=== PATIENT | female | born 1990 | race Caucasian/White ===

== ENCOUNTER 2019-10-29 10:59 | Inpatient (IN) ==
[2019-10-29] MEDS ORDERED: ONDANSETRON INJ 2 MG/ML 2 ML VIAL IV STA (11:25)
[2019-10-29] MEDS: SODIUM CHLORIDE 0.9% 1000ML 1,000 ML IV SCH ×2 (11:34→13:00)
--- NOTE | 2019-10-29 11:34 | Emergency Department Note ---
History of Present Illness General Chief complaint: Vomiting Stated complaint: VOMITING Time Seen by Provider: 10/29/19 11:08 History of Present Illness Patient is a 29-year-old female with past medical history significant for anxiety and depression who presents the emergency department for evaluation of nausea and vomiting x24 hours. She states her symptoms started yesterday morning. She reports multiple episodes of vomiting and constant nausea. She denies diarrhea. No hematemesis. No fever or chills. No urinary symptoms. She tried using Zofran, but vomiting persisted. She has tried sipping on water and Gatorade but she brings it back up almost immediately. She estimates that she has vomited roughly 10 times in the last 24 hours and 3 times since she woke up this morning. Last emesis was just prior to arrival here in the emergency department. Patient relates that she has been following with her doctor at [facility] for the last several months secondary to unexplained 40 pound weight loss and n ight sweats. She has been worked up with multiple tests including laboratory studies and a CT scan. She reports that she was supposed to have an appointment with GI this afternoon, but cancelled it as she was coming to the ED. She states that she has had episodes where she will vomit once or twice per day in the last several months, but it has not been constant like the last 24 hours have been. She lives at home with her , they have been eating and drinking the same foods and he is not ill. She has a Mirena IUD in place she does not menstruate and states that it is highly unlikely that she is . She reports mild diffuse mid abdominal discomfort, that she rates a 3/10, she states that it feels "muscular." Home Medications Home Medications Medication Instructions Recorded Confirmed Type levonorgestrel [Mirena] 20 mcg INTRAUTERINE CONTINOUS 02/07/19 10/29/19 History sertraline 150 mg PO DAILY 02/07/19 10/29/19 History Allergies Allergy/AdvReac Type Severity Reaction Status Date / Time No Known Allergies Allergy Verified 10/29/19 11:47 Past Med/Surg History Medical History (Updated 10/29/19 @ 12:12 by Faby Dominguez) Anxiety (Chronic) Depression (Chronic) Peritonsillar abscess Surgical History No significant past surgical history Family History (Updated 10/29/19 @ 10:22 by Miki Serra) Denies family history of Crohn's disease Colorectal cancer Ulcerative colitis Social History Preferred Language: Hungarian Visual Impairment: No Limitations Hearing Ability: Normal 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 marital status: Current Living Situation: Spouse current occupational status: student 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 Feels Safe at Home: Yes Smoking Status: Never smoker Hx Alcohol Use: No Hx Substance Use: No Childhood Exposure to Second-Hand Smoke: No caffeine: No during the past year weight has: decreased > 10 lbs Review of Systems A total of 10 systems reviewed and were otherwise negative Physical Exam Vital Signs Vital Signs - 24 hr 10/29/19 11:01 10/29/19 11:11 10/29/19 11:14 Temperature 36.3 C L Temperature Source Oral Pulse Rate - Lying Pulse Rate - Sitting Pulse Rate - Standing Pulse Rate 114 H 95 H 92 H Pulse Rate from SpO2 Sensor 99 H 92 H Respiratory Rate 18 18 18 Blood Pressure - Lying Blood Pressure - Sitting Blood Pressure- Standing Blood Pressure 75/47 L 83/64 L Blood Pressure Mean 56 76 Blood Pressure Position Sitting Pulse Oximetry 99 98 100 Oxygen Delivery Method Room Air Room Air Room Air Sepsis Recent Fever Within 48 Hours No Sepsis New/Unexplained Change in Mental Status No Sepsis Action Taken by Nursing No Action Required 10/29/19 11:16 10/29/19 11:20 10/29/19 11:28 Temperature Temperature Source Pulse Rate - Lying Pulse Rate - Sitting Pulse Rate - Standing Pulse Rate 97 H 98 H 84 Pulse Rate from SpO2 Sensor 98 H 97 H 92 H Respiratory Rate 16 17 18 Blood Pressure - Lying Blood Pressure - Sitting Blood Pressure- Standing Blood Pressure 107/59 L 87/57 L Blood Pressure Mean 64 69 Blood Pressure Position Pulse Oximetry 99 100 99 Oxygen Delivery Method Room Air Room Air Room Air Sepsis Recent Fever Within 48 Hours Sepsis New/Unexplained Change in Mental Status Sepsis Action Taken by Nursing 10/29/19 11:30 10/29/19 11:31 10/29/19 11:36 Temperature Temperature Source Pulse Rate - Lying 85 Pulse Rate - Sitting 94 H Pulse Rate - Standing 111 H Pulse Rate 84 81 Pulse Rate from SpO2 Sensor 83 83 Respiratory Rate 14 17 Blood Pressure - Lying 89/50 L Blood Pressure - Sitting 85/63 L Blood Pressure- Standing 90/55 L Blood Pressure 84/61 L Blood Pressure Mean 66 Blood Pressure Position Pulse Oximetry 97 99 Oxygen Delivery Method Room Air Room Air Sepsis Recent Fever Within 48 Hours Sepsis New/Unexplained Change in Mental Status Sepsis Action Taken by Nursing 10/29/19 11:37 10/29/19 11:39 10/29/19 11:40 Temperature Temperature Source Pulse Rate - Lying Pulse Rate - Sitting Pulse Rate - Standing Pulse Rate 94 H 108 H 87 Pulse Rate from SpO2 Sensor 92 H 96 H 90 Respiratory Rate 16 18 16 Blood Pressure - Lying Blood Pressure - Sitting Blood Pressure- Standing Blood Pressure 85/63 L 90/55 L Blood Pressure Mean 68 71 Blood Pressure Position Pulse Oximetry 100 70 L 84 L Oxygen Delivery Method Room Air Room Air Room Air Sepsis Recent Fever Within 48 Hours Sepsis New/Unexplained Change in Mental Status Sepsis Action Taken by Nursing 10/29/19 11:45 10/29/19 11:50 10/29/19 12:00 Temperature Temperature Source Pulse Rate - Lying Pulse Rate - Sitting Pulse Rate - Standing Pulse Rate 84 84 94 H Pulse Rate from SpO2 Sensor 86 90 Respiratory Rate 15 19 20 Blood Pressure - Lying Blood Pressure - Sitting Blood Pressure- Standing Blood Pressure 81/54 L Blood Pressure Mean 56 Blood Pressure Position Pulse Oximetry 97 83 L Oxygen Delivery Method Room Air Sepsis Recent Fever Within 48 Hours Sepsis New/Unexplained Change in Mental Status Sepsis Action Taken by Nursing 10/29/19 12:01 10/29/19 12:10 10/29/19 12:15 Temperature Temperature Source Pulse Rate - Lying Pulse Rate - Sitting Pulse Rate - Standing Pulse Rate 88 91 H 85 Pulse Rate from SpO2 Sensor 89 89 87 Respiratory Rate 16 14 16 Blood Pressure - Lying Blood Pressure - Sitting Blood Pressure- Standing Blood Pressure 88/52 L 79/52 L Blood Pressure Mean 67 58 Blood Pressure Position Pulse Oximetry 100 99 99 Oxygen Delivery Method Room Air Room Air Room Air Sepsis Recent Fever Within 48 Hours Sepsis New/Unexplained Change in Mental Status Sepsis Action Taken by Nursing 10/29/19 12:16 10/29/19 12:20 10/29/19 12:30 Temperature Temperature Source Pulse Rate - Lying Pulse Rate - Sitting Pulse Rate - Standing Pulse Rate 88 86 88 Pulse Rate from SpO2 Sensor 89 86 88 Respiratory Rate 16 15 18 Blood Pressure - Lying Blood Pressure - Sitting Blood Pressure- Standing Blood Pressure 75/53 L 86/52 L Blood Pressure Mean 58 57 Blood Pressure Position Pulse Oximetry 97 100 91 Oxygen Delivery Method Room Air Room Air Room Air Sepsis Recent Fever Within 48 Hours Sepsis New/Unexplained Change in Mental Status Sepsis Action Taken by Nursing 10/29/19 12:31 10/29/19 12:40 10/29/19 12:45 Temperature Temperature Source Pulse Rate - Lying Pulse Rate - Sitting Pulse Rate - Standing Pulse Rate 87 93 H 88 Pulse Rate from SpO2 Sensor 85 94 H Respiratory Rate 18 17 15 Blood Pressure - Lying Blood Pressure - Sitting Blood Pressure- Standing Blood Pressure 87/50 L Blood Pressure Mean 63 Blood Pressure Position Pulse Oximetry 96 98 Oxygen Delivery Method Room Air Room Air Room Air Sepsis Recent Fever Within 48 Hours Sepsis New/Unexplained Change in Mental Status Sepsis Action Taken by Nursing 10/29/19 12:50 10/29/19 13:00 10/29/19 13:01 Temperature Temperature Source Pulse Rate - Lying Pulse Rate - Sitting Pulse Rate - Standing Pulse Rate 88 90 96 H Pulse Rate from SpO2 Sensor 89 92 H 92 H Respiratory Rate 14 19 15 Blood Pressure - Lying Blood Pressure - Sitting Blood Pressure- Standing Blood Pressure 86/43 L Blood Pressure Mean 52 Blood Pressure Position Pulse Oximetry 82 L 100 91 Oxygen Delivery Method Room Air Room Air Room Air Sepsis Recent Fever Within 48 Hours Sepsis New/Unexplained Change in Mental Status Sepsis Action Taken by Nursing 10/29/19 13:10 10/29/19 13:15 Temperature Temperature Source Pulse Rate - Lying Pulse Rate - Sitting Pulse Rate - Standing Pulse Rate 93 H 95 H Pulse Rate from SpO2 Sensor 91 H 93 H Respiratory Rate 14 19 Blood Pressure - Lying Blood Pressure - Sitting Blood Pressure- Standing Blood Pressure 88/54 L Blood Pressure Mean 58 Blood Pressure Position Pulse Oximetry 93 100 Oxygen Delivery Method Room Air Room Air Sepsis Recent Fever Within 48 Hours Sepsis New/Unexplained Change in Mental Status Sepsis Action Taken by Nursing CONSTITUTIONAL: Patient is a thin 29-year-old female who is awake and alert and in no acute distress. She is noted to be hypotensive and tachycardic in triage. Afebrile. EYES: Pupils equal, round, reactive to light and accommodation. EOMs intact without nystagmus. Sclera are anicteric. ENT: Tympanic membranes intact, with normal landmarks. External canals are clear. Oral and nasopharynx are clear. Mucous membranes are moist, no lesions, tongue and gums appear normal. CARDIOVASCULAR: Regular rate and rhythm, with normal S1 and S2, no murmur or gallop or rub is heard. No carotid bruits auscultated. No JVD. Peripheral p ulses easy to palpable. RESPIRATORY: Breath sounds equal and clear to auscultation without wheezes, rales, or rhonchi heard. Full and equal chest expansion without accessory muscle use or retractions. GI: Bowel sounds are present. Abdomen is soft, scaphoid, mildly tender in the mid upper abdomen in the epigastric region. No organomegaly. No pulsatile masses. No guarding or rebound. MUSCULOSKELETAL: Full range of motion of extremities x 4 with good strength. No cyanosis, edema, joint tenderness or swelling. No deformity. INTEGUMENTARY: No lesions or rashes noted, darkened pigmentation noted diffusely. Normal skin turgor. NEUROLOGICAL: Alert, oriented, and cooperative. Cranial nerves, sensation and strength grossly intact. Normal gait. LYMPH: No lymphadenopathy. Course Course The patient was seen and assessed as above. Her old records were reviewed. She has had a several month history of unintentional weight loss and night sweats with nausea and vomiting, but acutely in the last 24 hours has had constant nausea and multiple episodes of vomiting. She has outpatient studies in the computer which were reviewed including CT of her chest, abdomen and pelvis from the end of July 2019, and an echocardiogram from 08/08/2019. Laboratory studies performed here previously were also reviewed. IV lock was initiated and laboratory studies were collected. Orthostatic vital signs were positive. She was hydrated with a total of 2 L of normal saline solution and medicated with Zofran 4 mg IV for nausea. CBC with differential, CMP, magnesium, lipase and urinalysis were performed. Laboratory studies noted a normal white count of 8200. No left shift or bandemia. No anemia. Electrolytes note a low sodium of 123, potassium 4.3, chloride 90, dioxide 22, BUN 20 and creatinine 0.8. Magnesium also low at 1.4. Transaminases are not elevated. Lipase is within normal limits. Urine microscopy notes 2+ blood and leukocyte esterase, and 2+ bacteria. Urine culture is pending. Patient is not currently experiencing any UTI symptoms. Her test was negative. All laboratory studies were reviewed with attending physician and discussed with the patient. 2 gram IV magnesium was ordered over 2 hours. Given her hyponatremia and hypomagnesia, it was felt that she would benefit from admi ssion/observation for further care and management, hydration and electrolyte repletion. This was discussed with her and she was agreeable. Tachycardia improved with hydration. [facility] service for further care and management. Administered Medications Discontinued Medications Sodium Chloride (Nss 1000ml) 1,000 mls @ 999 mls/hr IV .Q1H1M EILEEN Stop: 10/29/19 13:25 Last Infusion: 10/29/19 12:59 Dose: 0 mls/hr Documented by: [id number] Admin: 10/29/19 11:34 Dose: 999 mls/hr Documented by: [id number] Magnesium Sulfate/Dextrose (Magnesium Sulfate / D5w) 1 gm in 100 mls @ 100 mls/hr IV Q1H STA Stop: 10/29/19 12:54 Last Infusion: 10/29/19 13:05 Dose: 0 mls/hr Documented by: [id number] Admin: 10/29/19 12:11 Dose: 100 mls/hr Documented by: [id number] Ondansetron HCl (Zofran) 4 mg IV NOW STA Stop: 10/29/19 11:26 Last Admin: 10/29/19 11:34 Dose: 4 mg Documented by: [id number] Medical Decision Making Differential Diagnosis Differential diagnoses included dehydration, electrolyte or metabolic abnormality, gastritis, GERD, peptic ulcer disease, viral illness, infectious versus inflammatory colitis/enteritis, foodborne illness, infection, hypoglycemia, among others. Medical Records Attestation: I reviewed the patient's medical records. Home Medications Current Medication List: was personally reviewed by me Laboratory Data Attestation: I reviewed the patient's lab results. Result diagrams: 10/29/19 11:17 10/29/19 11:17 Lab Results 10/29/19 10/29/19 10/29/19 Range/Units 11:17 11:17 11:40 WBC 8.12 (4.8-10.8) K/uL RBC 4.82 (4.2-5.4) M/uL Hgb 14.3 (12.0-16.0) g/dL Hct 38.9 (37-47) % MCV 80.7 (80-100) fL MCH 29.7 (25-34) pg MCHC 36.8 H (32-36) g/dL RDW Std Deviation 36.8 (36.4-46.3) fL RDW Coeff of Jerry 12.5 (11.5-14.5) % Plt Count 289 (130-400) K/uL MPV 10.6 H (7.4-10.4) fL Immature Gran % (Auto) 0.1 % Neut % (Auto) 43.7 % Lymph % (Auto) 39.0 % [place] % (Auto) 9.2 % Eos % (Auto) 7.4 % Baso % (Auto) 0.6 % Immature Gran # (Auto) 0.01 (0.00-0.02) K/uL Neut # (Auto) 3.54 (1.4-6.5) K/uL Lymph # (Auto) 3.17 (1.2-3.4) K/uL [place] # (Auto) 0.75 H (0.11-0.59) K/uL Eos # (Auto) 0.60 H (0-0.5) K/uL Baso # (Auto) 0.05 (0-0.2) K/uL Sodium 123 L (136-145) mmol/L Potassium 4.3 (3.5-5.1) mmol/L Chloride 90 L (98-107) mmol/L Carbon Dioxide 22 (21-32) mmol/L Anion Gap 11.0 (3-11) BUN 20 H (7-18) mg/dl Creatinine 0.81 (0.6-1.2) mg/dl Est Cr Clr Drug Dosing 77.3 ml/min Est GFR ( Amer) 113.0 Est GFR (Non-Af Amer) 97.5 BUN/Creatinine Ratio 24.8 H (10-20) Glucose 89 (70-99) mg/dl Calcium 10.4 H (8.5-10.1) mg/dl Magnesium 1.4 L (1.8-2.4) mg/dl Total Bilirubin 0.9 (0.2-1) mg/dl AST 36 (15-37) U/L ALT 37 (12-78) U/L Alkaline Phosphatase 83 (45-117) U/L Total Protein 7.5 (6.4-8.2) gm/dl Albumin 3.5 (3.4-5.0) gm/dl Globulin 4.0 (2.5-4.0) gm/dl Albumin/Globulin Ratio 0.9 (0.9-2) Lipase 268 (73-393) U/L Urine Color Yellow Urine Appearance Clear (Clear) Urine pH 5.0 (4.5-7.5) Ur Specific [place] >= 1.030 (1.000-1.030) Urine Protein Negative (Negative) Urine Glucose (UA) Negative (Negative) Urine Ketones Trace H (Negative) Urine Blood 2+ H (Negative) Urine Nitrite Negative (Negative) Urine Bilirubin Negative (Negative) Urine Urobilinogen Negative (Negative) Ur Leukocyte Esterase 2+ H (Negative) Urine RBC 5-10 H (0-4) /hpf Urine WBC 10-30 H (0-5) /hpf Ur Epithelial Cells 5-10 H (0-5) /lpf Urine Bacteria 2+ H (Negative) WBC Casts 1-5 H (0) /lpf POC Ur Test (NEG) 10/29/19 Range/Units 11:44 WBC (4.8-10.8) K/uL RBC (4.2-5.4) M/uL Hgb (12.0-16.0) g/dL Hct (37-47) % MCV (80-100) fL MCH (25-34) pg MCHC (32-36) g/dL RDW Std Deviation (36.4-46.3) fL RDW Coeff of Jerry (11.5-14.5) % Plt Count (130-400) K/uL MPV (7.4-10.4) fL Immature Gran % (Auto) % Neut % (Auto) % Lymph % (Auto) % [place] % (Auto) % Eos % (Auto) % Baso % (Auto) % Immature Gran # (Auto) (0.00-0.02) K/uL Neut # (Auto) (1.4-6.5) K/uL Lymph # (Auto) (1.2-3.4) K/uL [place] # (Auto) (0.11-0.59) K/uL Eos # (Auto) (0-0.5) K/uL Baso # (Auto) (0-0.2) K/uL Sodium (136-145) mmol/L Potassium (3.5-5.1) mmol/L Chloride (98-107) mmol/L Carbon Dioxide (21-32) mmol/L Anion Gap (3-11) BUN (7-18) mg/dl Creatinine (0.6-1.2) mg/dl Est Cr Clr Drug Dosing ml/min Est GFR ( Amer) Est GFR (Non-Af Amer) BUN/Creatinine Ratio (10-20) Glucose (70-99) mg/dl Calcium (8.5-10.1) mg/dl Magnesium (1.8-2.4) mg/dl Total Bilirubin (0.2-1) mg/dl AST (15-37) U/L ALT (12-78) U/L Alkaline Phosphatase (45-117) U/L Total Protein (6.4-8.2) gm/dl Albumin (3.4-5.0) gm/dl Globulin (2.5-4.0) gm/dl Albumin/Globulin Ratio (0.9-2) Lipase (73-393) U/L Urine Color Urine Appearance (Clear) Urine pH (4.5-7.5) Ur Specific [place] (1.000-1.030) Urine Protein (Negative) Urine Glucose (UA) (Negative) Urine Ketones (Negative) Urine Blood (Negative) Urine Nitrite (Negative) Urine Bilirubin (Negative) Urine Urobilinogen (Negative) Ur Leukocyte Esterase (Negative) Urine RBC (0-4) /hpf Urine WBC (0-5) /hpf Ur Epithelial Cells (0-5) /lpf Urine Bacteria (Negative) WBC Casts (0) /lpf POC Ur Test NEG (NEG) Blood Pressure Blood Pressure Findings: Low blood pressure Blood Pressure Disposition: further management by hospitalist MDM Narrative See ED Course. Impression & Plan Hyponatremia, Hypomagnesemia, Nausea and vomiting, Orthostatic hypotension Discharge Plan Visit Data Chief Complaint: Vomiting Stated Complaint: VOMITING ED Provider: Tunde [facility] ED Midlevel Provider: Faby Dominguez Discharge Problem: Hyponatremia, Hypomagnesemia, Nausea and vomiting, Orthostatic hypotension Forms Stand Alone Forms: [employer] Prescriptions Prescriptions: No Action Mirena 20 mcg/24 hours (5 yrs) 52 mg Intrauterine Device 20 mcg INTRAUTERINE CONTINOUS RF: 0 sertraline 100 mg Tablet 150 mg PO DAILY RF: 0 Referrals Referrals: [facility] [Primary Care Provider] - Discharge Problem: Nausea and vomiting Qualifiers: Vomiting type: unspecified Vomiting Intractability: non-intractable Qualified Code(s): R11.2 - Nausea with vomiting, unspecified
[2019-10-29 11:44] LABS: Basophils # (auto) 0.05 K/uL (0-0.2); Basophils % (auto) 0.6 %; Eosinophils % (auto) 7.4 %; Hematocrit (blood only) 38.9 % (37-47); Hemoglobin 14.3 g/dL (12.0-16.0); Immature Granulocytes # (auto) 0.01 K/uL (0.00-0.02); Immature Granulocytes % (auto) 0.1 %; Lymphocytes # (auto) 3.17 K/uL (1.2-3.4); Mean Corpuscular Hemoglobin 29.7 pg (25-34); Mean Corpuscular Hgb Conc 36.8 g/dL (32-36); Mean Corpuscular Volume 80.7 fL (80-100); Mean Platelet Volume 10.6 fL (7.4-10.4); Monocytes # (auto) 0.75 K/uL (0.11-0.59); Monocytes % (auto) 9.2 %; Neutrophils # (auto) 3.54 K/uL (1.4-6.5); Neutrophils % (auto) 43.7 %; Platelet Count 289 K/uL (130-400); RDW Coefficient of Variation 12.5 % (11.5-14.5); RDW Standard Deviation 36.8 fL (36.4-46.3); Red Blood Count 4.82 M/uL (4.2-5.4); White Blood Count 8.12 K/uL (4.8-10.8)
[2019-10-29 11:51] LABS: Albumin Level 3.5 gm/dl (3.4-5.0); BUN Creatinine Ratio 24.8 (10-20); Calcium 10.4 mg/dl (8.5-10.1); Creatinine Clr Calc Pharmacy 77.3 ml/min; Est GFR (Non-African American) 97.5; Magnesium 1.4 mg/dl (1.8-2.4); Potassium 4.3 mmol/L (3.5-5.1)
[2019-10-29 11:54] LABS: Albumin Globulin Ratio 0.9 (0.9-2); Bilirubin,Total 0.9 mg/dl (0.2-1); Total Protein 7.5 gm/dl (6.4-8.2)
[2019-10-29] MEDS ORDERED: MAGNESIUM SULFATE / D5W 1 GM/100 ML BAG IV STA (11:55)
[2019-10-29 12:03] LABS: Appearance Urine Clear (Clear); Blood Urine 2+ (Negative); Color Urine Yellow; Glucose Urine UA Negative (Negative); Ketones Urine Trace (Negative); Leukocyte Esterase Urine 2+ (Negative); Nitrite Urine Negative (Negative); Protein Urine Negative (Negative); Specific Gravity Urine >= 1.030 (1.000-1.030); Urobilinogen Urine Negative (Negative)
[2019-10-29 12:06] LABS: Bilirubin Urine Negative (Negative); Ictotest Urine Negative (Negative)
[2019-10-29 12:14] LABS: Bacteria Urine 2+ (Negative)
[2019-10-29] MEDS ORDERED: SODIUM CHLORIDE 0.9% 500 ML IV ONE (13:48)
--- NOTE | 2019-10-29 14:00 | History & Physical Report ---
Date of Service October 29, 2019 Assessment & Plan (1) Shock: Random cortisol level is <1. Shock is likely due to addisonian crisis. I cannot exclude sepsis from UTI but less likely given no fever, normal WBC count, etc -- but plan to treat UTI anyway. Of note - based on records it appears pt's baseline systolic BP is upper 90s. She verbally verified that this is her baseline as well. plan - * will given additional saline bolus now * then generous fluids with NS at 125cc/hr * start stress dose steroids; start with IV decadron but if cosyntropin stim test is not needed then switch to hydrocortisone 100mg TID (to discuss case with endocrinology) * check ACTH, free T4, prolactin to r/o secondary cause of adrenal insufficiency (pituitary adenoma, etc) * place on tele in PCU * watch vitals carefully and if BPs do not improve with above then low threshold to discuss care with junior financial analyst (2) Adrenal insufficiency: Random cortisol level is <1 consistent with adrenal insufficiency. I spoke with endocrinology - they advise a repeat level to ensure no lab error. However, given her salt cravings, lip hyperpigmentation, weight loss, hyponatremia, etc - everything points towards primary adrenal insufficiency (ahmet's). Check ACTH, prolactin, and TSH/free T4. Start stress-dose steroids as noted above in "shock." (3) Hyponatremia: Hypovolemic hyponatremia from severe dehydration. Check serum osm, urine osm, urine Na to be complete. Replete with NS. Recheck BMP later tonight and then again in am. (4) Hypomagnesemia: 2nd to emesis and decreased PO intake. repleted in ER. recheck mag level in AM. (5) Nausea and vomiting: Suspect 2nd to adrenal crisis and/or UTI. Cannot rule out other upper GI causes. Allow clears; zofran prn; IV fluids. If vomiting persists then consider CT of abd/pelvis. (6) Orthostatic hypotension: 2nd to massive dehydration and adrenal insufficiency. OOB to chair with assistance. Daily AM orthostatics. (7) Severe protein-calorie malnutrition: Differential - malignancy vs endocrine disorder (adrenal insufficiency, etc) vs autoimmune disease (has aphthous ulcers on exam, h/o lymphadenopathy on CT chest in July, etc) vs other. Treat adrenal gland disorder. Potentially may need additional work-up as outpatient. (8) Weight loss, unintentional: As above. Start boost. Start MVI. (9) Depression: Cont SSRI (10) Anxiety: Cont SSRI (11) UTI (urinary tract infection): u/a suggestive of UTI. send urine culture. Start rocephin 1 gm daily. Has WBC casts - this may suggest pyelonephritis - but has no flank pain/back pain or other suggestion of such. (12) Abnormal casts in urine: WBC casts see above (13) Ovarian cyst: as seen on CT abd/pelvis in July 2019. saw clay roaster at [facility]. had pelvic u/s. felt to be benign. needs f/u for IUD as outpatient. (14) Abnormal chest CT: Had multiple axillary, mediastinal and hilar lymph nodes on CT chest in July 2019. none were >1cm in size. if adrenal insufficiency is felt NOT to be the cause of her presentation today and her chronic weight loss then would recommend repeat chest CT jeanette. (15) Hypercalcemia: Mild. Start with intact PTH. This may simply be due to massive dehydration. Has not had high calcium in the past. Is not on any medication that would cause such. Repeat BMP in am. If high calcium level persists, and in light of weight loss, sweats, etc - would need malignancy w/u, r/o sarcoid, etc. (16) DVT prophylaxis: heparin 5000 BID In light of suspected shock 2nd to new-onset/newly-diagnosed adrenal insufficiency/adrenal crisis - as this poses a threat to her life and puts her at risk of organ injury - critical care time 70 minutes. History of Present Illness Chief Complaint: nausea, emesis, inability to eat, weakness, weight loss Primary Care Provider: [facility] 29yo female with h/o anxiety/depression and a prior hospital stay in [place], [place] for what sounds like complications from peritonsillar abscess presents with multiple complaints. Patient reports persistent vomiting of stomach contents (nonbilious, nonbloody) for about 24 hours (vomited at least 9x's), constant nausea, inability to eat/drink, and severe weakness with dizziness upon standing. She has felt chronically unwell since 06/2019 with daily drenching nightsweats, chills, and unintentional weight loss of about 40 pounds. She underwent work-up for this in July 2019 with rios-CT showing mildly enlarged axillary and mediastinal lymph nodes along with an ovarian lesion later felt to be a benign ovarian cyst (had pelvic u/s and saw clay roaster at [facility] this winter for such). She has not had follow-up for the weight loss since. In addition to the above she has had cough for 1-2 weeks - mainly dry, left ear discomfort, sinus congestion with runny nose (attributed to seasonal allergies) but no headaches, fevers, abdominal pain, myalgias, or arthralgias. No diarrhea but has had constipation. No dysuria. Has IUD in place and has NO menstrual blood flow. Was due to have the IUD removed in August but delayed because of COVID-19. Has NOT been out of her home for 2+ weeks. Lives with her who buys the groceries, etc. He has been well without any infectious symptoms. Allergies Allergy/AdvReac Type Severity Reaction Status Date / Time No Known Allergies Allergy Verified 10/29/19 11:47 Home Medications Home Medications Medication Instructions Recorded Confirmed Type levonorgestrel [Mirena] 20 mcg INTRAUTERINE CONTINOUS 02/07/19 10/29/19 History sertraline 150 mg PO DAILY 02/07/19 10/29/19 History Past Med/Surg History Medical History (Updated 10/29/19 @ 15:32 by Onel Wick) Anxiety (Chronic) Depression (Chronic) Peritonsillar abscess Surgical History No significant past surgical history Family History Mother Pituitary abnormality Father Hypertension Denies family history of Autoimmune disease Crohn's disease Lymphoma Colorectal cancer Ulcerative colitis Social History (Updated 10/29/19 @ 15:10 by Onel Wick) Preferred Language: Hebrew Communication Ability: Effective Visual Impairment: No Limitations Hearing Ability: Normal 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 Beliefs That Will Affect Care: None marital status: Current Living Situation: Spouse current occupational status: student 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 Feels Safe at Home: Yes Safety Concerns: Feels Safe At This Time Smoking Status: Never smoker Hx Alcohol Use: No Hx Substance Use: No Childhood Exposure to Second-Hand Smoke: No caffeine: No during the past year weight has: decreased > 10 lbs Review of Systems Constitutional: + chills, + sweats, + fatigue, + weakness, + anorexia and + weight loss (40 pounds since 06/2019 ); no fever and no body aches Eyes: no worsening vision Ear, Nose, Mouth, Throat: + nasal congestion, + nasal discharge and + mouth lesions (chronic - since childhood); no sore throat Respiratory: + cough; no chest congestion and no dyspnea Cardiovascular: no chest pain Gastrointestinal: + nausea, + vomiting and + constipation; no abdominal pain, no diarrhea/loose stools, no blood in stools and no melena Genitourinary: no dysuria Musculoskeletal: no joint pain and no myalgia Integumentary: no rash and no change in skin color Neurologic: no localized weakness and no paresthesia Psychiatric: + depression and + anxiety Endocrine: + fatigue and + cold intolerance Hematologic / Lymphatic: no easy bleeding Physical Exam Constitutional: + ill appearing, + thin and + frail appearing; no acute distress and no altered mental status Eyes: + anicteric sclerae and PERRL ENMT: Ears: + TM abnormality (left TM retracted ) Mouth: + lip abnormality (bronzing/hyperpigmented ), + oral mucosal abnormality (aphthous ulcer left posterior throat ) and + dry oral mucous membranes Neck: trachea midline, no thyromegaly Respiratory: normal respiratory effort, lungs clear to auscultation Cardiovascular: Rate/Rhythm: regular rate and regular rhythm Heart Sounds: normal S1 and normal S2; no murmur Vessels: posterior tibial pulses present and dorsalis pedis pulses present; no JVD Extremities: no edema Gastrointestinal (Abdomen): normal bowel sounds, soft, nontender, no hepatosplenomegaly Musculoskeletal: no cyanosis or clubbing, extremities motor strength 5/5 Skin: no rashes, warm and dry Neurologic: moves all extremities; no focal motor deficits DTRs mildly brisk Psychiatric: A+Ox3, euthymic affect Genitourinary: deferred Lymphatic: + cervical lymphadenopathy (1cm node- left neck); no axillary lymphadenopathy Results & Data Results & Data ([facility]) Vital Signs (Past 12 Hours) Vital Signs Temp Pulse Resp BP Pulse Ox 10/29/19 13:15 95 H 19 88/54 L 100 10/29/19 13:10 93 H 14 93 10/29/19 13:01 96 H 15 86/43 L 91 10/29/19 13:00 90 19 100 10/29/19 12:50 88 14 82 L 10/29/19 12:45 88 15 87/50 L 10/29/19 12:40 93 H 17 98 10/29/19 12:31 87 18 96 10/29/19 12:30 88 18 86/52 L 91 10/29/19 12:20 86 15 100 10/29/19 12:16 88 16 75/53 L 97 10/29/19 12:15 85 16 79/52 L 99 10/29/19 12:10 91 H 14 99 10/29/19 12:01 88 16 88/52 L 100 10/29/19 12:00 94 H 20 83 L 10/29/19 11:50 84 19 10/29/19 11:45 84 15 81/54 L 97 10/29/19 11:40 87 16 84 L 10/29/19 11:39 108 H 18 90/55 L 70 L 10/29/19 11:37 94 H 16 85/63 L 100 10/29/19 11:31 81 17 99 10/29/19 11:30 84 14 84/61 L 97 10/29/19 11:28 84 18 87/57 L 99 10/29/19 11:20 98 H 17 100 10/29/19 11:16 97 H 16 107/59 L 99 10/29/19 11:14 92 H 18 100 10/29/19 11:11 95 H 18 83/64 L 98 10/29/19 11:01 36.3 C L 114 H 18 75/47 L 99 Laboratory Results Laboratory Results - last 24 hr 10/29/19 10/29/19 10/29/19 11:17 11:17 11:17 WBC 8.12 RBC 4.82 Hgb 14.3 Hct 38.9 MCV 80.7 MCH 29.7 MCHC 36.8 H RDW Std Deviation 36.8 RDW Coeff of Jerry 12.5 Plt Count 289 MPV 10.6 H Immature Gran % (Auto) 0.1 Neut % (Auto) 43.7 Lymph % (Auto) 39.0 Isabella % (Auto) 9.2 Eos % (Auto) 7.4 Baso % (Auto) 0.6 Immature Gran # (Auto) 0.01 Neut # (Auto) 3.54 Lymph # (Auto) 3.17 Isabella # (Auto) 0.75 H Eos # (Auto) 0.60 H Baso # (Auto) 0.05 ESR 49 H Sodium 123 L Potassium 4.3 Chloride 90 L Carbon Dioxide 22 Anion Gap 11.0 BUN 20 H Creatinine 0.81 Est Cr Clr Drug Dosing 77.3 Est GFR ( Amer) 113.0 Est GFR (Non-Af Amer) 97.5 BUN/Creatinine Ratio 24.8 H Glucose 89 Osmolality Calcium 10.4 H Magnesium 1.4 L Total Bilirubin 0.9 AST 36 ALT 37 Alkaline Phosphatase 83 C-Reactive Protein Total Protein 7.5 Albumin 3.5 Globulin 4.0 Albumin/Globulin Ratio 0.9 Lipase 268 TSH PTH Intact Random Cortisol Urine Color Urine Appearance Urine pH Ur Specific Helix Urine Protein Urine Glucose (UA) Urine Ketones Urine Blood Urine Nitrite Urine Bilirubin Urine Urobilinogen Ur Leukocyte Esterase Urine RBC Urine WBC Ur Epithelial Cells Urine Bacteria WBC Casts POC Ur Test NEGRO Screen 10/29/19 10/29/19 10/29/19 11:17 11:17 11:17 WBC RBC Hgb Hct MCV MCH MCHC RDW Std Deviation RDW Coeff of Jerry Plt Count MPV Immature Gran % (Auto) Neut % (Auto) Lymph % (Auto) Isabella % (Auto) Eos % (Auto) Baso % (Auto) Immature Gran # (Auto) Neut # (Auto) Lymph # (Auto) Isabella # (Auto) Eos # (Auto) Baso # (Auto) ESR Sodium Potassium Chloride Carbon Dioxide Anion Gap BUN Creatinine Est Cr Clr Drug Dosing Est GFR ( Amer) Est GFR (Non-Af Amer) BUN/Creatinine Ratio Glucose Osmolality 260 L Calcium Magnesium Total Bilirubin AST ALT Alkaline Phosphatase C-Reactive Protein 5.00 H Total Protein Albumin Globulin Albumin/Globulin Ratio Lipase TSH 5.080 H PTH Intact Random Cortisol 0.60 Urine Color Urine Appearance Urine pH Ur Specific Helix Urine Protein Urine Glucose (UA) Urine Ketones Urine Blood Urine Nitrite Urine Bilirubin Urine Urobilinogen Ur Leukocyte Esterase Urine RBC Urine WBC Ur Epithelial Cells Urine Bacteria WBC Casts POC Ur Test NEGRO Screen 10/29/19 10/29/19 10/29/19 11:40 11:44 14:20 WBC RBC Hgb Hct MCV MCH MCHC RDW Std Deviation RDW Coeff of Jerry Plt Count MPV Immature Gran % (Auto) Neut % (Auto) Lymph % (Auto) Isabella % (Auto) Eos % (Auto) Baso % (Auto) Immature Gran # (Auto) Neut # (Auto) Lymph # (Auto) Isabella # (Auto) Eos # (Auto) Baso # (Auto) ESR Sodium Potassium Chloride Carbon Dioxide Anion Gap BUN Creatinine Est Cr Clr Drug Dosing Est GFR ( Amer) Est GFR (Non-Af Amer) BUN/Creatinine Ratio Glucose Osmolality Calcium Magnesium Total Bilirubin AST ALT Alkaline Phosphatase C-Reactive Protein Total Protein Albumin Globulin Albumin/Globulin Ratio Lipase TSH PTH Intact < 6.3 L Random Cortisol Urine Color Yellow Urine Appearance Clear Urine pH 5.0 Ur Specific Helix >= 1.030 Urine Protein Negative Urine Glucose (UA) Negative Urine Ketones Trace H Urine Blood 2+ H Urine Nitrite Negative Urine Bilirubin Negative Urine Urobilinogen Negative Ur Leukocyte Esterase 2+ H Urine RBC 5-10 H Urine WBC 10-30 H Ur Epithelial Cells 5-10 H Urine Bacteria 2+ H WBC Casts 1-5 H POC Ur Test NEG NEGRO Screen 10/29/19 14:20 WBC RBC Hgb Hct MCV MCH MCHC RDW Std Deviation RDW Coeff of Jerry Plt Count MPV Immature Gran % (Auto) Neut % (Auto) Lymph % (Auto) Isabella % (Auto) Eos % (Auto) Baso % (Auto) Immature Gran # (Auto) Neut # (Auto) Lymph # (Auto) Isabella # (Auto) Eos # (Auto) Baso # (Auto) ESR Sodium Potassium Chloride Carbon Dioxide Anion Gap BUN Creatinine Est Cr Clr Drug Dosing Est GFR ( Amer) Est GFR (Non-Af Amer) BUN/Creatinine Ratio Glucose Osmolality Calcium Magnesium Total Bilirubin AST ALT Alkaline Phosphatase C-Reactive Protein Total Protein Albumin Globulin Albumin/Globulin Ratio Lipase TSH PTH Intact Random Cortisol Urine Color Urine Appearance Urine pH Ur Specific Helix Urine Protein Urine Glucose (UA) Urine Ketones Urine Blood Urine Nitrite Urine Bilirubin Urine Urobilinogen Ur Leukocyte Esterase Urine RBC Urine WBC Ur Epithelial Cells Urine Bacteria WBC Casts POC Ur Test NEGRO Screen Pending Medications Administered 2 liters of NS bolus in ER prior to my assessment 2 grams mag sulfate x 1 in ER Code Status & VTE Plan Code Status full code VTE Prophylaxis Plan VTE Prophylaxis will be ordered: Yes Critical Care Time Critical Care Time: Yes Total Critical Care Time: 70 PG Care Time/CCT Critical Care Time: Yes Total Critical Care Time: 70 Coding Level of Care Code None Diagnoses Shock R57.9 Adrenal insufficiency E27.40 Hyponatremia E87.1 Hypomagnesemia E83.42 Nausea and vomiting R11.2 Vomiting Intractability: non-intractable Vomiting type: unspecified Orthostatic hypotension I95.1 Severe protein-calorie malnutrition E43 Weight loss, unintentional R63.4 Depression F32.89 Depression Type: other depression Anxiety F41.9 UTI (urinary tract infection) N30.00 Urinary tract infection type: acute cystitis Hematuria presence: without hematuria Abnormal casts in urine R82.998 Ovarian cyst N83.209 Laterality: unspecified laterality Abnormal chest CT R93.89 Hypercalcemia E83.52 DVT prophylaxis Z29.9 Additional Codes Critical Care Time - Critical Care Time: Yes ([id number]) Time Spent (min) 70 (1) Nausea and vomiting Vomiting Intractability: non-intractable Vomiting type: unspecified Qualified Code(s): R11.2 - Nausea with vomiting, unspecified (2) Depression Depression Type: other depression Qualified Code(s): F32.89 - Other specified depressive episodes (3) UTI (urinary tract infection) Urinary tract infection type: acute cystitis Hematuria presence: without hematuria Qualified Code(s): N30.00 - Acute cystitis without hematuria (4) Ovarian cyst Laterality: unspecified laterality Qualified Code(s): N83.209 - Unspecified ovarian cyst, unspecified side
[2019-10-29] MEDS ORDERED: ACETAMINOPHEN 325 MG TAB PO PRN (14:42)
[2019-10-29] MEDS ORDERED: ONDANSETRON INJ 2 MG/ML 2 ML VIAL IV PRN (14:42)
[2019-10-29] MEDS ORDERED: POLYETHYLENE (MIRALAX) 17 GM PACK PO PRN (14:42)
[2019-10-29 14:44] LABS: Thyroid Stimulating Hormone 5.08 uIu/ml (0.300-4.500)
[2019-10-29] MEDS ORDERED: DEXAMETHASONE SOD PHOSPHATE 10 MG in SYRINGE 0 ML IV ONE (15:30)
[2019-10-29] MEDS: D5W AND NSS 1,000 ML IV SCH (16:55)
[2019-10-29] MEDS: FLUDROCORTISONE ACETATE 0.1 MG TAB PO SCH (17:24)
[2019-10-29 18:03] LABS: BUN Creatinine Ratio 26.4 (10-20); Calcium 8.6 mg/dl (8.5-10.1); Creatinine Clr Calc Pharmacy 113.8 ml/min; Est GFR (African American) 145.9; Est GFR (Non-African American) 125.9; Potassium 4.4 mmol/L (3.5-5.1)
--- NOTE | 2019-10-29 18:23 | History & Physical Bridge Note ---
Date of Service October 29, 2019 History & Physical Bridge Note Repeat cortisol level also <1. Presentation c/w addisonian crisis. Hydrocortisone 100mg TID ordered along with florinef 0.1mg daily. Prolactin level not low; free T4 normal - arguing against central/secondary adrenal insufficiency. Repeat BMP at 1700 -- Na now 128 (up from 123). Lower fluid rate to 100cc/hr. Repeat creatinine improved. Repeat BMP in am. 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 Onel Wick MD
[2019-10-29] MEDS: LEVONORGESTREL (MIRENA) IUD PV SCH (18:34)
[2019-10-29] MEDS: cefTRIAXone SODIUM 1,000 MG in DEXTROSE 5% 50 ML IV SCH (18:35)
[2019-10-29] MEDS: HEPARIN SOD 5,000 UNIT/0.5 ML VIAL SQ SCH (21:24)
[2019-10-29] MEDS: HYDROCORTISONE SOD 100 MG in SYRINGE 0 ML IV SCH (23:46)
[2019-10-30] MEDS: D5W AND NSS 1,000 ML IV SCH ×2 (01:34→10:45)
[2019-10-30 06:25] LABS: Hematocrit (blood only) 31.2 % (37-47); Hemoglobin 11.1 g/dL (12.0-16.0); Lymphocytes # (auto) 0.65 K/uL (1.2-3.4); Lymphocytes % (auto) 23.6 %; Mean Corpuscular Hgb Conc 35.6 g/dL (32-36); Mean Corpuscular Volume 81.5 fL (80-100); Monocytes # (auto) 0.04 K/uL (0.11-0.59); Monocytes % (auto) 1.5 %; Neutrophils # (auto) 2.06 K/uL (1.4-6.5); Neutrophils % (auto) 74.9 %; Platelet Count 175 K/uL (130-400); RDW Coefficient of Variation 12.6 % (11.5-14.5); RDW Standard Deviation 37.5 fL (36.4-46.3); Red Blood Count 3.83 M/uL (4.2-5.4); White Blood Count 2.75 K/uL (4.8-10.8)
[2019-10-30 07:02] LABS: BUN Creatinine Ratio 17.9 (10-20); Blood Urea Nitrogen 9 mg/dl (7-18); Calcium 8.5 mg/dl (8.5-10.1); Carbon Dioxide 19 mmol/L (21-32); Chloride 104 mmol/L (98-107); Creatinine Clr Calc Pharmacy 129.9 ml/min; Est GFR (African American) > 150.0; Est GFR (Non-African American) 131.6; Glucose 191 mg/dl (70-99); Magnesium 1.6 mg/dl (1.8-2.4); Potassium 4.4 mmol/L (3.5-5.1); Sodium 132 mmol/L (136-145)
[2019-10-30] MEDS: HYDROCORTISONE SOD 100 MG in SYRINGE 0 ML IV SCH (07:25)
[2019-10-30] MEDS: FLUDROCORTISONE ACETATE 0.1 MG TAB PO SCH (08:55)
[2019-10-30] MEDS ORDERED: SERTRALINE HCL 50 MG TABLET PO SCH (09:00)
[2019-10-30] MEDS: HEPARIN SOD 5,000 UNIT/0.5 ML VIAL SQ SCH (09:30)
[2019-10-30] MEDS: LEVONORGESTREL (MIRENA) IUD PV SCH (13:09)
[2019-10-30] MEDS ORDERED: ALUMINUM/MAGNESIUM/SIMETH (MAALOX MAX) 30 ML UDC PO STA (13:18)
[2019-10-30] MEDS: cefTRIAXone SODIUM 1,000 MG in DEXTROSE 5% 50 ML IV SCH (13:31)
[2019-10-30] MEDS ORDERED: HYDROCORTISONE 10 MG TAB PO STA (13:36)
--- NOTE | 2019-10-30 16:46 | Discharge Summary ---
Date of Service October 30, 2019 Admission HPI Per Admitting Provider 29yo female with h/o anxiety/depression and a prior hospital stay in [place], [place] for what sounds like complications from peritonsillar abscess presents with multiple complaints. Patient reports persistent vomiting of stomach contents (nonbilious, nonbloody) for about 24 hours (vomited at least 9x's), constant nausea, inability to eat/drink, and severe weakness with dizziness upon standing. She has felt chronically unwell since 06/2019 with daily drenching nightsweats, chills, and unintentional weight loss of about 40 pounds. She underwent work-up for this in July 2019 with rios-CT showing mildly enlarged axillary and mediastinal lymph nodes along with an ovarian lesion later felt to be a benign ovarian cyst (had pelvic u/s and saw bottom cager at [facility] this winter for such). She has not had follow-up for the weight loss since. In addition to the above she has had cough for 1-2 weeks - mainly dry, left ear discomfort, sinus congestion with runny nose (attributed to seasonal allergies) but no headaches, fevers, abdominal pain, myalgias, or arthralgias. No diarrhea but has had constipation. No dysuria. Has IUD in place and has NO menstrual blood flow. Was due to have the IUD removed in August but delayed because of COVID-19. Has NOT been out of her home for 2+ weeks. Lives with her who buys the groceries, etc. He has been well without any infectious symptoms. Principal Diagnosis Gage's disease Discharge Exam Constitutional WD/WN, vitals as above Eyes EOM intact bilaterally; no conjunctival abnormality ENMT external ear and nose normal, oropharynx normal Neck trachea midline, no thyromegaly normal visual inspection Respiratory normal respiratory effort, lungs clear to auscultation no respiratory distress Cardiovascular RRR, no murmur, no edema Gastrointestinal (Abdomen) Inspection/Auscultation: abdomen normal to inspection; abdomen not distended Musculoskeletal no cyanosis or clubbing, extremities motor strength 5/5 Skin no rashes, warm and dry (Darkly pigmented) Neurologic moves all extremities and awake Psychiatric Orientation: alert, oriented to person and cooperative Discharge Data Allergies Allergy/AdvReac Type Severity Reaction Status Date / Time No Known Allergies Allergy Verified 10/29/19 11:47 Consultations 10/29/19 12:46 ED Decision to Admit Stat Hospital Course (1) Adrenal insufficiency: Random cortisol level is <1 consistent with adrenal insufficiency. Rechecked and still <1. - ACTH pending - Spoke with endocrinology -> Recommend hydrocortisone 20 mg PO QAM and 10 mg PO 8 hours later. Discussed with patient and discharged on this regimen. - Discharged on fludrocortisone 0.1mg PO QAM as well. - Will follow up with endocrinology for next labs and adjustment of steroids. (2) Shock: Random cortisol level is <1. - Shock is likely due to addisonian crisis. - Resolved with steroids; see above (3) UTI (urinary tract infection): UA was suggestive of UTI; however, she had no symptoms of UTI. No fever, no leukocytosis, no dysuria. - Urine culture showed less than 1,000 CFU of any bacteria. - Stopped abx (received 2 days of ceftriaxone) (4) Hyponatremia: Hypovolemic hyponatremia from severe dehydration and adrenal insufficiency. - Na corrected to 132 with steroids -> IV fluids at that point held to avoid central pontine myelinolysis. - Labs next week with endocrinology (5) Nausea and vomiting: Suspect 2nd to adrenal crisis. - Completely gone by day of discharge. (6) Orthostatic hypotension: 2nd to massive dehydration and adrenal insufficiency. - Resolved by discharge. (7) Severe protein-calorie malnutrition: Likely due to adrenal insufficiency. - Diet had returned by discharge, and I suspect this will resolve with treatment of her adrenal insufficiency. (8) Depression: - Continue SSRI - Mood dramatically improved by discharge with probable diagnosis and treatment. (9) Anxiety: - Cont SSRI - As above (10) Ovarian cyst: As seen on CT abd/pelvis in July 2019. Saw bottom cager at [facility]. Had pelvic u/s. [place] to be benign. - Needs f/u for IUD as outpatient. (11) Abnormal chest CT: Had multiple axillary, mediastinal and hilar lymph nodes on CT chest in July 2019. None were > 1cm in size. CT report indicates these were felt to be physiologic. - No follow up needed (12) Hypercalcemia: Mild. - Intact PTH was undetectable which is appropriate. This may simply be due to massive dehydration. - Repeat calcium were normal. - Follow up with endocrinology. Total Time Total Time Spent Total Time Spent (In Minutes): 35 Discharge Plan Discharge Items Patient Disposition: Home - Self-Care Reason For Visit: HYPONATREMIA,DEHYDRATION,ORTHOSTASIS,HYPOMAGNESMIA Discharge Diagnosis: Russell's disease Activity: Resume your previous activity Non-emergency contact: Primary Care Provider and Specialist Call non-emergency contact if: your symptoms worsen Follow-up/Referrals: Jorge Carty MD [Physician] - (Please call his office tomorrow to arrange an appointment for next week.) [facility] [Primary Care Provider] - Diet: Regular Addtl Attending Provider Instructions: Ms. 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 This disease occurs when your adrenal glands stop producing your normal level of steroids (stress hormones) due to an autoimmune issue where your body mistakes the adrenal glands as an invader and destroys them. Luckily, you have responded incredibly well to steroids, and we discussed with Dr. Carty your home regimen. You will take the hydrocortisone two times per day. The first dose will be in the morning. You will take hydrocortisone 20 mg in the morning, then take the 10 mg approximately 8 hours after that. You will also take fludrocortisone as a mimic of the other steroid that the adrenal glands produce. You will only need to take this one time per day. Please follow up with Dr. Carty in his office in 1 week. He will follow your labs and adjust your steroid dosing to be sure you are getting the proper amount of each medication. Please come back to the hospital with any new/concerning symptoms. Please see your PCP this week as well if able just to check in on your blood pressure and how you are feeling. Pending Studies at Discharge: Yes (ACTH) Stand-Alone Forms: My Code Blue, Smoking Cessation Medications and DC Order Prescriptions: New fludrocortisone 0.1 mg tablet 0.1 mg PO DAILY Qty: 30 RF: 0 hydrocortisone 20 mg tablet 20 mg PO DAILY Qty: 30 RF: 0 hydrocortisone 10 mg tablet 10 mg PO DAILY Qty: 30 RF: 0 Continued Mirena 20 mcg/24 hours (5 yrs) 52 mg Intrauterine Device 20 mcg INTRAUTERINE CONTINOUS RF: 0 sertraline 100 mg Tablet 150 mg PO DAILY RF: 0 Discharge Orders: Discharge Order (Routine); Ordered 10/30/19 Ordered By: Hadley Sevilla Admission Data Admit Date/Time: 10/29/19 13:48 Attending Provider: Hadley Sevilla Admit Provider: Onel Wick Primary Care Provider: [facility] Other Providers: Hadley Sevilla Other Interventions: Discharge Summary Assessment (RN) Last Done: 10/30/19 14:11 DC Date/Time DO NOT enter until pt leaves facility: 10/30/19 14:34 Coding Level of Care Code D/C Day Management >30 mins Diagnoses Adrenal insufficiency E27.40 Shock R57.9 UTI (urinary tract infection) N30.00 Urinary tract infection type: acute cystitis Hematuria presence: without hematuria Hyponatremia E87.1 Nausea and vomiting R11.2 Vomiting Intractability: non-intractable Vomiting type: unspecified Orthostatic hypotension I95.1 Severe protein-calorie malnutrition E43 Depression F32.89 Depression Type: other depression Anxiety F41.9 Ovarian cyst N83.209 Laterality: unspecified laterality Abnormal chest CT R93.89 Hypercalcemia E83.52
[2019-10-31 08:45] LABS: Anti Nuclear Antibody Screen NEGATIVE (NEGATIVE)
== END 2019-10-30 14:34 | disposition home or self-care (01) | DRG 643 ==
LOC: ED 10:59 → 2S 13:48 → SUATTDRO 13:48 → 2S 14:36

== ENCOUNTER 2021-11-04 04:17 | Inpatient (IN) ==
[2021-11-04] MEDS: LACTATED RINGER'S 1,000 ML IV PRN ×3 (04:50→13:10)
[2021-11-04] MEDS ORDERED: OXYTOCIN 30 UNITS/500 ML BAG IV PRN ×3 (04:50→16:24)
--- NOTE | 2021-11-04 04:59 | History & Physical Report ---
Date of Service November 04, 2021 Assessment & Plan (1) Supervision of normal intrauterine in primigravida: (2) Adrenal insufficiency: (3) HSV-2 infection: (4) Normal labor: Plan: 31-year-old at 40 weeks 2 days gestational age presents in early labor. Patient had planned induction of labor today 1. Fetus: Cat 1 2. Labor: Will monitor for progression and augment as needed 3. GBS negative 4. [place]'s Disease Managed by Dr. Kinney [place] [facility] [place]greeable to MFM consult Per MFM-During labor-Hydrocortisone 25mg Q 6 hours recommended Delivery or prolonged labor-Hydrocortisone 100mg IV Q 6 hours. After delivery-taper Hydrocortisone within 3 days to maintenance dose 5. Vitals WNL Admission and Anticipated Discharge Date Admission Date: November 04, 2021 History of Present Illness Primary Care Provider: Ericka Olivia Zachary Pastrana is a 31-year-old admitted at 40 weeks 2 days gestational age in early labor. Patient had a Carroll catheter for cervical ripening placed last night which has subsequently come out. Patient denies any leakage of fluids reporting good movement. 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 Also managed through Dr Kinney Flu shot given 04/28/21 SB 1' HSV Genital Infection in Valtrex daily at 36wk Allergies Allergy/AdvReac Type Severity Reaction Status Date / Time No Known Allergies Allergy Verified 11/03/21 20:01 Home Medications Medication Instructions Recorded Confirmed Type prenat.vits,edmundo,[id number] 1 tab PO PM 03/22/21 11/04/21 History fludrocortisone 0.1 mg tablet 0.1 mg PO QAM 03/23/21 11/03/21 History hydrocortisone 5 mg tablet 5 - 10 mg PO BID 03/23/21 11/04/21 History sertraline 50 mg tablet 50 mg PO DAILY 08/24/21 11/04/21 History valacyclovir 500 mg tablet 500 mg PO BID #60 tab 10/07/21 11/04/21 Rx (Valtrex) breast pump #1 ea 10/28/21 11/02/21 Rx Patient History Medical History (Updated 11/04/21 @ 07:58 by Jason Henley MD) [place]'s disease Anxiety Depression Andie's disease Peritonsillar abscess Surgical History No significant past surgical history Family History Mother Pituitary abnormality Father Hypertension Denies family history of Autoimmune disease Crohn's disease Lymphoma Colorectal cancer Ulcerative colitis Social History Smoking Status: Never smoker Hx Alcohol Use: No Hx Substance Use: No Preferred Language: Romansh Communication Ability: Effective Visual Impairment: No Limitations Hearing Ability: Normal Manager [place] Required: No Beliefs That Will Affect Care: None marital status: marital status details: Jose Guadalupe [phone] Current Living Situation: Spouse Current Living Situation Comment: lives with spouse, 1 dog current occupational status: student 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 Other Information That Helps Us Care for You: No Feels Safe at Home: Yes Safety Concerns: Feels Safe At This Time Childhood Exposure to Second-Hand Smoke: No caffeine: No during the past year weight has: decreased > 10 lbs Assistive Devices: Glasses Physical Exam Genitourinary: OB Exam Abdomen: + vertex Manual OB Exam: + cervical dilation (3.5), + cervical effacement 70% and + station high OB Exam Monitor Tracing: + external FHT monitor used, + external uterine monitor used, + category I and + normal FHT variability; no early decelerations present and no late decelerations present Results & Data ([facility]) Vital Signs (Past 12 Hours) Vital Signs Temp Pulse Resp BP 11/04/21 04:32 36.8 C 18 11/04/21 04:27 86 134/78 Coding Level of Care Code None Diagnoses Supervision of normal intrauterine in primigravida Z34.00 Adrenal insufficiency E27.40 HSV-2 infection B00.9 Normal labor O80; Z37.9
[2021-11-04] MEDS ORDERED: SODIUM CHLORIDE 0.9% INJ 10 ML VIAL ONE (05:07)
[2021-11-04] MEDS ORDERED: ePHEDrine sulfate 50 MG/ML AMP ONE (05:07)
[2021-11-04] MEDS ORDERED: fentaNYL citrate 100 MCG/2 ML VIAL ONE (05:07)
[2021-11-04] MEDS ORDERED: BUPIVACAINE 0.25% 30 ML VIAL ONE (05:07)
[2021-11-04] MEDS ORDERED: fentaNYL 2MCG/ML ROPIVACAINE 1.25MG/ML 100 ML BAG EPI ONE (05:08)
[2021-11-04 05:27] LABS: Hemoglobin 11.8 g/dL (12.0-16.0); Mean Corpuscular Hemoglobin 30.6 pg (25-34); Mean Corpuscular Hgb Conc 35.8 g/dL (32-36); Mean Corpuscular Volume 85.7 fL (80-100); Mean Platelet Volume 10.8 fL (7.4-10.4); Platelet Count 219 K/uL (130-400); RDW Coefficient of Variation 13.5 % (11.5-14.5); Red Blood Count 3.85 M/uL (4.2-5.4); White Blood Count 14.21 K/uL (4.8-10.8)
[2021-11-04] MEDS: HYDROCORTISONE SOD 25 MG in SYRINGE 0 ML IV SCH ×2 (05:50→12:12)
[2021-11-04] MEDS ORDERED: ONDANSETRON INJ 2 MG/ML 2 ML VIAL IV PRN (06:15)
[2021-11-04] MEDS ORDERED: PROMETHAZINE HCL 6.25 MG in SODIUM CHLORIDE 0.9% 50 ML IV PRN (06:15)
[2021-11-04] MEDS ORDERED: NALBUPHINE HCL INJ 10 MG/ML AMP IV PRN (06:15)
[2021-11-04] MEDS ORDERED: NALOXONE HCL 0.4 MG/1 ML VIAL/CARP IV PRN (06:15)
[2021-11-04] MEDS ORDERED: ePHEDrine sulfate 50 MG/ML AMP IV PRN (06:15)
[2021-11-04] MEDS ORDERED: NALOXONE HCL 1 MG in SODIUM CHLORIDE 0.9% 1000ML 1,000 ML IV PRN (06:15)
[2021-11-04] MEDS ORDERED: fentaNYL 2MCG/ML ROPIVACAINE 1.25MG/ML 100 ML BAG EPI PRN (06:15)
[2021-11-04] MEDS ORDERED: diphenhydrAMINE 50 MG/ML VIAL IV PRN (06:15)
--- NOTE | 2021-11-04 06:15 | Anesthesiology Consultation ---
Date of Service November 04, 2021 Assessment & Plan Chart Review Chart Review: Patient NOT seen in Pre Admission Testing and Acceptable Risk for Labor Epidural Consults Requested none ASA ASA2 Proposed Anesthesia Anesthesia Type: Labor Epidural Risk / Benefits Reviewed With: PT / POA / Parent / Guardian, Accepts Plan and Informed Consent Obtained History Height/Weight Height: 5 ft 2 in Weight: 78.925 kg Allergies Allergy/AdvReac Type Severity Reaction Status Date / Time No Known Allergies Allergy Verified 11/03/21 20:01 Medications Home Medications Medication Instructions Recorded Confirmed Last Taken prenat.vits,edmundo,okd-weqy-ccaog 1 tab PO PM 03/22/21 11/04/21 11/03/21 fludrocortisone 0.1 mg tablet 0.1 mg PO QAM 03/23/21 11/03/21 11/03/21 09:00 hydrocortisone 5 mg tablet 5 - 10 mg PO BID 03/23/21 11/04/21 11/04/21 sertraline 50 mg tablet 50 mg PO DAILY 08/24/21 11/04/21 11/03/21 valacyclovir 500 mg tablet 500 mg PO BID #60 tab 10/07/21 11/04/21 11/03/21 (Valtrex) breast pump #1 ea 10/28/21 11/02/21 Unknown Active Medications Generic Name Dose Route Start Last Admin Trade Name Freq PRN Reason Stop Dose Admin Hydrocortisone Sodium 0.5 mls @ 4 mls/min 11/04/21 06:00 11/04/21 05:50 Succinate 25 mg/ Syringe IV 12/04/21 05:59 4 mls/min Q6 EILEEN Administration Lactated Ringer's 1,000 mls @ 150 mls/hr 11/04/21 04:50 11/04/21 05:58 Lr IV 11/06/21 04:49 150 mls/hr .[id number] PRN Administration L&D Protocol Protocol Past Medical History Medical History [place]'s disease Anxiety Depression Andie's disease Peritonsillar abscess Exercise / Class Metabolic Activity II 4-5 Yardwork/Stairs/Walk up hill Past Family History Family History Mother Pituitary abnormality Father Hypertension Denies family history of Autoimmune disease Crohn's disease Lymphoma Colorectal cancer Ulcerative colitis Past Surgical History Surgical History No significant past surgical history Past Anesthesia History No Hx of Anesthesia Complications and No Family Hx of Anesthesia Complications History of PONV No Hx of PONV and No Hx of Motion Sickness Social History Smoking Status: Never smoker Hx Alcohol Use: No alcohol intake frequency: holidays/special occasions only Hx Substance Use: No substance use type: does not use Physical Exam Vital Signs Last Vital Signs Temp 36.8 C 11/04/21 04:32 Pulse 78 11/04/21 06:12 Resp 18 11/04/21 04:32 BP 111/65 11/04/21 06:12 Pulse Ox 94 11/04/21 06:08 ENMT Mouth: no dentition abnormality Thyromental Distance: > or= 3.5 Finger Breadths Mallampati Class: II Neck normal visual inspection Respiratory normal respiratory effort Auscultation: lungs clear to auscultation bilaterally Cardiovascular Rate/Rhythm: regular rate and regular rhythm Psychiatric Orientation: alert Testing Laboratory Results 11/04/21 05:18
--- NOTE | 2021-11-04 09:29 | Labor Progress Brief Note ---
Date of Service November 04, 2021 Subjective Comfortable with epidural. 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 Plan reviewed with patient and FOB as well. 25mg IV Solucortef while in labor. 100mg IV stress dose solucortef to be given at start of second stage. dose taper to be given as advised by hospitalist team following their consultation which is for this specific purpose, as no direction on how to taper was included by MFM in their consult. Continue baseline oral dosing of fludrocortisone daily throughout. IV crystalloid hydration and patient monitoring continue, and adjustments can be made prn if evidence of insufficient support. (2) Normal labor: Plan: IOL underway, cervix ripe, and spontaneous contractions which did begin have not been able to create ongoing progress. Pitocin recommended and accepted. AROM likely with next check when head better applied. Admission and Anticipated Discharge Date Admission Date: November 04, 2021 Physical Exam Genitourinary: /-2 FHT Cat 1 Petronila Q5-6 Results & Data ([facility]) Vital Signs (Past 12 Hours) Vital Signs Temp Pulse Resp BP Pulse Ox 11/04/21 09:18 83 95 11/04/21 09:13 73 94 11/04/21 09:09 70 106/59 L 88 L 11/04/21 09:08 75 93 11/04/21 09:03 93 H 95 11/04/21 08:58 80 92 11/04/21 08:54 65 111/55 L 11/04/21 08:53 71 92 11/04/21 08:52 70 91 11/04/21 08:48 80 93 11/04/21 08:47 71 91 11/04/21 08:43 71 91 11/04/21 08:42 67 91 11/04/21 08:39 67 105/59 L 11/04/21 08:38 72 92 11/04/21 08:36 76 91 11/04/21 08:33 70 91 11/04/21 08:30 73 91 11/04/21 08:28 69 91 11/04/21 08:25 69 91 11/04/21 08:23 70 105/55 L 92 11/04/21 08:19 70 91 11/04/21 08:18 69 91 11/04/21 08:14 70 91 11/04/21 08:13 70 92 11/04/21 08:09 70 103/58 L 11/04/21 08:08 73 91 11/04/21 08:07 75 91 11/04/21 08:03 70 90 11/04/21 08:00 73 91 11/04/21 07:58 72 92 05 07:54 78 101/58 L 88 L 06 07:53 79 92 11/04/21 07:48 76 92 11/04/21 07:43 104 H 93 11/04/21 07:38 77 109/54 L 92 11/04/21 07:35 72 91 11/04/21 07:33 77 92 11/04/21 07:28 76 92 11/04/21 07:23 78 108/52 L 93 11/04/21 07:18 91 H 95 11/04/21 07:15 98.6 F 20 11/04/21 07:13 79 94 06 07:10 77 112/54 L 11/04/21 07:08 79 93 11/04/21 07:03 88 93 11/04/21 06:58 72 92 11/04/21 06:54 78 114/58 L 11/04/21 06:53 76 93 11/04/21 06:48 72 93 11/04/21 06:43 71 93 11/04/21 06:39 73 109/60 11/04/21 06:38 73 93 11/04/21 06:33 74 94 06 06:30 16 11/04/21 06:28 77 93 11/04/21 06:23 83 113/69 94 11/04/21 06:19 110/66 0506 06:18 75 95 06 06:15 18 06 06:14 83 109/60 05 06:13 82 95 11/04/21 06:12 78 111/65 05 06:10 86 22 111/62 05 06:08 93 H 116/61 94 11/04/21 06:06 92 H 132/79 0506 06:05 93 H 20 93 05/06/22 06:04 88 136/86 11/04/21 06:03 93 H 97 11/04/21 05:58 110 H 93 11/04/21 05:53 85 95 11/04/21 05:48 67 96 11/04/21 05:43 78 97 11/04/21 05:38 84 97 11/04/21 05:33 74 97 11/04/21 05:28 87 96 11/04/21 05:23 80 94 11/04/21 05:18 82 96 11/04/21 05:13 84 96 11/04/21 04:32 98.2 F 18 11/04/21 04:27 86 134/78 Coding Level of Care Code None Diagnoses Webber's disease E27.1 Normal labor O80; Z37.9
[2021-11-04] MEDS ORDERED: FLUDROCORTISONE ACETATE 0.1 MG TAB PO SCH (09:30)
--- NOTE | 2021-11-04 11:15 | Labor Progress Brief Note ---
Date of Service November 04, 2021 Subjective Comfortable with epidural. Having bladder cath when I entered the room. Assessment & Plan (1) Normal labor: Plan: Continue pitocin titration. AROM now done. RN thinks she was seeing a trickle before the AROM, and there was likely at least a small leak, but some additional flow seen and also notably felt by patient after the bag was ruptured. The leakage after AROM had green stain suggestive of mec but also a lot of mucus plug present, so RN will observe to try to confirm if mec or just mucus. For Russell's continue current plan; fludrocortisone dose for today has been given, IV hydrocortisone continues. (2) Russell's disease: Admission and Anticipated Discharge Date Admission Date: November 04, 2021 Physical Exam Genitourinary: /-2 (no change) AROM for small amount of mec-stained fluid Posey Q4, Pit @ 5 just recently raised from 3 T Cat 1 Results & Data ([facility]) Vital Signs (Past 12 Hours) Vital Signs Temp Pulse Resp BP Pulse Ox 11/04/21 11:09 93 H 112/61 90 11/04/21 11:08 103 H 95 11/04/21 11:03 79 95 11/04/21 10:58 64 93 11/04/21 10:53 64 106/64 93 11/04/21 10:48 64 93 11/04/21 10:43 63 93 11/04/21 10:40 62 101/61 87 L 11/04/21 10:38 65 93 11/04/21 10:33 62 94 11/04/21 10:28 69 93 11/04/21 10:23 69 115/63 94 11/04/21 10:21 69 91 11/04/21 10:18 70 91 11/04/21 10:15 65 91 11/04/21 10:13 64 93 11/04/21 10:09 66 109/59 L 11/04/21 10:08 68 84 L 11/04/21 10:03 67 93 11/04/21 10:00 20 11/04/21 09:58 65 93 11/04/21 09:53 74 116/66 94 11/04/21 09:48 75 94 11/04/21 09:43 70 94 11/04/21 09:40 68 112/59 L 11/04/21 09:38 67 92 11/04/21 09:37 68 91 11/04/21 09:33 68 91 11/04/21 09:32 68 91 11/04/21 09:30 20 11/04/21 09:28 69 92 11/04/21 09:24 71 111/67 87 L 11/04/21 09:23 72 94 11/04/21 09:18 83 95 11/04/21 09:13 73 94 11/04/21 09:09 70 106/59 L 88 L 11/04/21 09:08 75 93 11/04/21 09:03 93 H 95 11/04/21 08:58 80 92 11/04/21 08:54 65 111/55 L 11/04/21 08:53 71 92 11/04/21 08:52 70 91 11/04/21 08:48 80 93 11/04/21 08:47 71 91 11/04/21 08:43 71 91 11/04/21 08:42 67 91 11/04/21 08:39 67 105/59 L 11/04/21 08:38 72 92 11/04/21 08:36 76 91 11/04/21 08:33 70 91 11/04/21 08:30 73 91 11/04/21 08:28 69 91 11/04/21 08:25 69 91 11/04/21 08:23 70 105/55 L 92 11/04/21 08:19 70 91 11/04/21 08:18 69 91 11/04/21 08:14 70 91 11/04/21 08:13 70 92 11/04/21 08:09 70 103/58 L 06 08:08 73 91 11/04/21 08:07 75 91 11/04/21 08:03 70 90 11/04/21 08:00 73 91 11/04/21 07:58 72 92 0506 07:54 78 101/58 L 88 L 11/04/21 07:53 79 92 11/04/21 07:48 76 92 11/04/21 07:43 104 H 93 11/04/21 07:38 77 109/54 L 92 11/04/21 07:35 72 91 05 07:33 77 92 05 07:28 76 92 11/04/21 07:23 78 108/52 L 93 11/04/21 07:18 91 H 95 11/04/21 07:15 98.6 F 20 11/04/21 07:13 79 94 11/04/21 07:10 77 112/54 L 11/04/21 07:08 79 93 11/04/21 07:03 88 93 11/04/21 06:58 72 92 11/04/21 06:54 78 114/58 L 11/04/21 06:53 76 93 11/04/21 06:48 72 93 11/04/21 06:43 71 93 11/04/21 06:39 73 109/60 11/04/21 06:38 73 93 11/04/21 06:33 74 94 11/04/21 06:30 16 11/04/21 06:28 77 93 11/04/21 06:23 83 113/69 94 11/04/21 06:19 110/66 11/04/21 06:18 75 95 11/04/21 06:15 18 11/04/21 06:14 83 109/60 11/04/21 06:13 82 95 11/04/21 06:12 78 111/65 11/04/21 06:10 86 22 111/62 11/04/21 06:08 93 H 116/61 94 11/04/21 06:06 92 H 132/79 11/04/21 06:05 93 H 20 93 11/04/21 06:04 88 136/86 11/04/21 06:03 93 H 97 11/04/21 05:58 110 H 93 11/04/21 05:53 85 95 11/04/21 05:48 67 96 11/04/21 05:43 78 97 11/04/21 05:38 84 97 11/04/21 05:33 74 97 11/04/21 05:28 87 96 06 05:23 80 94 11/04/21 05:18 82 96 11/04/21 05:13 84 96 11/04/21 04:32 98.2 F 18 11/04/21 04:27 86 134/78 Coding Level of Care Code None Diagnoses Normal labor O80; Z37.9 Russell's disease E27.1
--- NOTE | 2021-11-04 13:26 | Hospitalist Consultation ---
Date of Consultation November 04, 2021 Assessment & Plan (1) Normal labor: - Per REPAIR WELDER (2) Adrenal insufficiency: - Patient taking Florinef 0.1 mg daily and currently on hydrocortisone 10 mg twice daily (prior to her third trimester, was on 10 mg in the morning and 5 mg in the evening but increased by her interactive media marketing specialist during her third trimester) -Agree with plan to provide Solu-Cortef 25 mg IV every 6H with an additional 100 mg IV at the onset of pushing. -Postdelivery, would transition back to her Florinef 0.1 mg daily along with h ydrocortisone 20 mg twice daily X 1 day, then 20 mg in the a.m./10 mg in the p.m. X 1 day, then 10 mg twice daily X 1 day, then back to 10 mg in the morning and 5 mg in the evening chronically -would consider a BMP in am to assess her e-lytes (sodium, glucose and potassium primarily) -We will sign off on this patient from medical standpoint but please do not he sitate to reconsult or reach out should there be a problem (3) Leukocytosis: - Suspect steroid-induced plus . Patient without respiratory or urinary complaints. Would consider infectious work-up (blood cultures, chest x- ray, COVID test, urinalysis and culture) should patient develop a fever or any physical symptoms to suggest infectious process but likely steroid-induced Plan of care will be discussed with Dr. Olmstead. Did discuss with Dr. Pena. Please do not hesitate to to reach out should there be a problem. Thank you for allowing me to participate in the care of this patient. We will sign off. Supervising Physician Co-Signing Physician Notes NENA Supervision Note: I personally saw and examined the patient. I verified all bal points and agree with NENA Johansen with the following exceptions and/or additions: This patient is a 31-year-old female with history of Nicholas's disease and depression with anxiety who is here now status post vaginal delivery. Hospital service consulted form management of stress dose steroids. Patient is doing well after delivery. Denies any lightheadedness, no chest pain shortness of breath, no nausea. She is currently at the bedside of her baby who is on CPAP for respiratory distress. O- Vitals reviewed Gen: AAOx3, NAD, obese HEENT: Anicteric sclerae, EOMI CV: RRR no mgr nl S1S2 Pulm: CTAB no wcr Ext: No edema Skin: No rashes, warm/dry Neuro: Full strength throughout Labs reviewed A/M-71-pbbh-old female with Nicholas's here , consulted for stress to steroids Agree with plan outlined as above Change hydrocortisone timing for the afternoon dose to 1500 to mimic physiologic process Ordered BMP for the morning History of Present Illness Reason for Consultation: Medical management Requesting Physician: Dr. Pena Attending Physician: Jason Henley MD History of Present Illness Mrs. Alvarez is a 31-year-old white female with underlying past medical history of Nicholas's disease who is being seen in consultation for medical management. Patient is 40 weeks and 2 days gestation with her first . Had Carroll b ulb insertion with plan for induction today but spontaneous labor started overnight with active contractions. Medicine was asked to evaluate patient regarding stress dose steroids tapering to her routine dose of hydrocortisone given her underlying history of Nicholas's disease. Patient follows Dr. Kinney (endocrinology) in [place]. She takes Florinef 0.1 mg daily and hydrocortisone 10 mg twice daily routine. Up until her third trimester, she was taking hydrocortisone 10 mg in the morning and 5 mg in the evening but was instructed to increase this to 10 mg twice daily by her interactive media marketing specialist given the stress of surgery. She is currently ordered Solu- Cortef IV 25 mg every 6 hours with a plan for 100 mg IV when she is actively pushing. I have been asked to aid in the recommendations for the tapering course of steroids. Patient has not been tachycardic, hypotensive, or hypoglycemic. No metabolic panel obtained. Allergies Allergy/AdvReac Type Severity Reaction Status Date / Time No Known Allergies Allergy Verified 11/03/21 20:01 Home Medications Medication Instructions Recorded Confirmed Type prenat.vits,edmundo,jhl-xgdf-zebpa 1 tab PO PM 03/22/21 11/04/21 History fludrocortisone 0.1 mg tablet 0.1 mg PO QAM 03/23/21 11/03/21 History hydrocortisone 5 mg tablet 5 - 10 mg PO BID 03/23/21 11/04/21 History sertraline 50 mg tablet 50 mg PO DAILY 08/24/21 11/04/21 History valacyclovir 500 mg tablet 500 mg PO BID #60 tab 10/07/21 11/04/21 Rx (Valtrex) breast pump #1 ea 10/28/21 11/02/21 Rx Patient History Medical History Russell's disease Anxiety Depression Andie's disease Peritonsillar abscess Surgical History No significant past surgical history Family History Mother Pituitary abnormality Father Hypertension Denies family history of Autoimmune disease Crohn's disease Lymphoma Colorectal cancer Ulcerative colitis Social History Smoking Status: Never smoker Hx Alcohol Use: No Hx Substance Use: No Preferred Language: Mongolian Communication Ability: Effective Visual Impairment: No Limitations Hearing Ability: Normal Optical Engineering Technician Required: No Beliefs That Will Affect Care: None marital status: marital status details: Jose Guadalupe [phone] Current Living Situation: Spouse Current Living Situation Comment: lives with spouse, 1 dog current occupational status: student 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 Other Information That Helps Us Care for You: No Feels Safe at Home: Yes Safety Concerns: Feels Safe At This Time Childhood Exposure to Second-Hand Smoke: No caffeine: No during the past year weight has: decreased > 10 lbs Assistive Devices: Glasses Review of Systems Review of Systems: All systems reviewed and are unremarkable except as noted in HPI and below Denies fevers, chills, headache, nasal congestion, sore throat, cough, chest pain, shortness of breath, palpitations, orthopnea, PND, nausea, vomiting, diarrhea, constipation, dysuria, hematuria, frequency, back pain, joint pain or swelling, easy bruising or bleeding, skin lesions or rashes. Physical Exam Physical Exam: General: Resting comfortably in her hospital bed. Intermittent contractions noted but patient seems fairly comfortable throughout these. NAD. HEENT: Head is AT/NC. Buccal mucosa is moist and pink Neck: No JVD. Negative hepatojugular reflex Cardiac: RRR with 1/6 to 2/6 TOMMY Lungs: CTA without W/R/R Abdomen: Gestational abdomen noted Extremities: No peripheral clubbing cyanosis or edema Neuro: A&O X4. Cranial nerves II through XII are grossly intact. No focal neuro deficits Skin: No obvious skin lesions or rashes Psych: Appropriate affect. Pleasant and cooperative Results & Data Results & Data ([facility]) Vital Signs (Past 12 Hours) Vital Signs Temp Pulse Resp BP Pulse Ox 11/04/21 13:13 71 95 11/04/21 13:09 67 130/72 11/04/21 13:08 68 95 11/04/21 13:03 71 94 11/04/21 13:00 37.1 C 20 11/04/21 12:58 66 93 11/04/21 12:54 68 127/65 90 11/04/21 12:53 65 94 11/04/21 12:48 68 96 11/04/21 12:43 73 94 11/04/21 12:40 80 124/64 11/04/21 12:38 74 92 11/04/21 12:33 77 93 11/04/21 12:28 78 92 11/04/21 12:24 71 108/62 89 L 11/04/21 12:23 74 94 11/04/21 12:18 76 95 11/04/21 12:13 73 95 11/04/21 12:08 71 115/66 94 11/04/21 12:03 67 94 11/04/21 11:58 74 94 11/04/21 11:54 76 115/66 11/04/21 11:53 80 95 11/04/21 11:48 77 92 11/04/21 11:47 81 91 11/04/21 11:43 76 95 11/04/21 11:40 75 107/62 11/04/21 11:38 70 92 11/04/21 11:36 72 91 11/04/21 11:33 73 92 11/04/21 11:28 76 93 11/04/21 11:24 73 115/57 L 11/04/21 11:23 78 88 L 11/04/21 11:18 81 94 11/04/21 11:13 78 93 11/04/21 11:09 93 H 112/61 90 11/04/21 11:08 103 H 95 11/04/21 11:03 79 95 11/04/21 11:00 37.0 C 20 11/04/21 10:58 64 93 05/06/22 10:53 64 106/64 93 11/04/21 10:48 64 93 11/04/21 10:43 63 93 11/04/21 10:40 62 101/61 87 L 11/04/21 10:38 65 93 11/04/21 10:33 62 94 11/04/21 10:28 69 93 11/04/21 10:23 69 115/63 94 11/04/21 10:21 69 91 11/04/21 10:18 70 91 11/04/21 10:15 65 91 11/04/21 10:13 64 93 11/04/21 10:09 66 109/59 L 11/04/21 10:08 68 84 L 11/04/21 10:03 67 93 11/04/21 10:00 20 11/04/21 09:58 65 93 11/04/21 09:53 74 116/66 94 11/04/21 09:48 75 94 11/04/21 09:43 70 94 11/04/21 09:40 68 112/59 L 11/04/21 09:38 67 92 11/04/21 09:37 68 91 11/04/21 09:33 68 91 11/04/21 09:32 68 91 11/04/21 09:30 20 11/04/21 09:28 69 92 11/04/21 09:24 71 111/67 87 L 11/04/21 09:23 72 94 11/04/21 09:18 83 95 11/04/21 09:13 73 94 11/04/21 09:09 70 106/59 L 88 L 11/04/21 09:08 75 93 11/04/21 09:03 93 H 95 11/04/21 08:58 80 92 11/04/21 08:54 65 111/55 L 11/04/21 08:53 71 92 11/04/21 08:52 70 91 11/04/21 08:48 80 93 11/04/21 08:47 71 91 11/04/21 08:43 71 91 11/04/21 08:42 67 91 11/04/21 08:39 67 105/59 L 11/04/21 08:38 72 92 05 08:36 76 91 11/04/21 08:33 70 91 11/04/21 08:30 73 91 11/04/21 08:28 69 91 11/04/21 08:25 69 91 11/04/21 08:23 70 105/55 L 92 11/04/21 08:19 70 91 11/04/21 08:18 69 91 11/04/21 08:14 70 91 11/04/21 08:13 70 92 11/04/21 08:09 70 103/58 L 06 08:08 73 91 11/04/21 08:07 75 91 11/04/21 08:03 70 90 11/04/21 08:00 73 91 11/04/21 07:58 72 92 11/04/21 07:54 78 101/58 L 88 L 11/04/21 07:53 79 92 11/04/21 07:48 76 92 11/04/21 07:43 104 H 93 11/04/21 07:38 77 109/54 L 92 11/04/21 07:35 72 91 11/04/21 07:33 77 92 11/04/21 07:28 76 92 11/04/21 07:23 78 108/52 L 93 11/04/21 07:18 91 H 95 11/04/21 07:15 37.0 C 20 11/04/21 07:13 79 94 11/04/21 07:10 77 112/54 L 11/04/21 07:08 79 93 11/04/21 07:03 88 93 11/04/21 06:58 72 92 11/04/21 06:54 78 114/58 L 06 06:53 76 93 11/04/21 06:48 72 93 11/04/21 06:43 71 93 11/04/21 06:39 73 109/60 05 06:38 73 93 05 06:33 74 94 0506 06:30 16 0506 06:28 77 93 0506 06:23 83 113/69 94 11/04/21 06:19 110/66 0506 06:18 75 95 11/04/21 06:15 18 0506 06:14 83 109/60 0506 06:13 82 95 0506 06:12 78 111/65 05 06:10 86 22 111/62 11/04/21 06:08 93 H 116/61 94 11/04/21 06:06 92 H 132/79 11/04/21 06:05 93 H 20 93 11/04/21 06:04 88 136/86 11/04/21 06:03 93 H 97 11/04/21 05:58 110 H 93 11/04/21 05:53 85 95 11/04/21 05:48 67 96 11/04/21 05:43 78 97 11/04/21 05:38 84 97 11/04/21 05:33 74 97 11/04/21 05:28 87 96 11/04/21 05:23 80 94 11/04/21 05:18 82 96 11/04/21 05:13 84 96 11/04/21 04:32 36.8 C 18 11/04/21 04:27 86 134/78 Laboratory Results 11/04/21 05:18 PG Care Time/CCT Total # of Minutes Spent Total Time Spent with Patient: Total time spent is greater than 50% in coordination of care (as documented) at patient's floor/unit and/or counseling patient: Coding Level of Care Code 99498 Inpt Consult Level 4 Diagnoses Normal labor O80; Z37.9 Adrenal insufficiency E27.40 Leukocytosis D72.829
[2021-11-04] MEDS ORDERED: HYDROCORTISONE SOD 100 MG in SYRINGE 0 ML IV SCH (15:00)
--- NOTE | 2021-11-04 16:01 | Delivery Summary ---
Vaginal Delivery Summary Date of Service November 04, 2021 Vaginal Delivery Summary Spontaneous vaginal delivery the patient was induced earlier by previous provider and signed over the patient was 9-1/2 cm and received her stress dose of steroids she had light meconium and a reassuring heart rate tracing she then delivered in the baby occiput anterior position she had light meconium mouth and then nares suctioned with a bulb gentle traction no excessive force on the baby live vigorous male infant cord clamped and cut cord gases obtained cord blood obtained placenta removed with gentle traction IV Pitocin started uterine tone improved second-degree tear repaired with 3-0 Vicryl sponge and instrument counts correct estimated blood loss 200 mL
[2021-11-04] MEDS ORDERED: BENZOCAINE 20% AER SPR 82.5 GM CAN EXT PRN (16:24)
[2021-11-04] MEDS ORDERED: bisacodyL 10 MG SUPP PR PRN (16:24)
[2021-11-04] MEDS ORDERED: oxyCODONE/ACETAMINOPHEN 5mg/325mg TAB PO PRN (16:24)
[2021-11-04] MEDS ORDERED: DIPHTHERIA/TETANUS/PERTUSSIS 0.5 ML SYR/VIAL IM ONE (16:24)
[2021-11-04] MEDS ORDERED: ACETAMINOPHEN 325 MG TAB PO PRN (16:24)
[2021-11-04] MEDS ORDERED: HYDROCORTISONE ACETATE 25 MG SUPP PR PRN (16:24)
[2021-11-04] MEDS ORDERED: HYDROCORTISONE 10 MG TAB PO SCH ×2 (16:24→21:00)
--- NOTE | 2021-11-04 16:38 | Anesthesia Procedure Note ---
Date of Service November 04, 2021 Anesthesia Post Epidural Note Vital Signs Vital Signs: Temp Pulse Resp BP Pulse Ox 98.8 F 67 20 123/69 95 11/04/21 13:00 11/04/21 16:34 11/04/21 16:04 11/04/21 16:34 11/04/21 16:03 Pain Intensity Lower Abdomen: Pain Intensity: 1 Notes Mental Status: alert / awake / arousable and participated in evaluation Nausea / Vomiting: adequately controlled Pain: adequately controlled Airway Patency, RR, SpO2: stable & adequate BP & HR: stable & adequate Hydration State: stable & adequate Neuraxial Anesthesia: was administered and sensory block is resolving Anesthetic Complications: no major complications apparent and Pt Satisfied with anesthetic care Epidural: Removed without complications and With tip intact
[2021-11-04 16:40] LABS: Base Excess Cord Arterial Bld -7.9 mEq/L (-9-1.8); CO2 Cord Arterial Blood 79 mmHg (39.1-73.5); HCO3 Cord Arterial Blood 24 mmol/L (19.7-28.5); PO2 Cord Arterial Blood 20 mmHg (4.1-31.7)
[2021-11-04] MEDS: IBUPROFEN 600 MG TAB PO PRN ×2 (16:45→21:37)
[2021-11-04 16:53] LABS: Base Excess Cord Venous Blood -6.6 mEq/L (-7.7-1.9); Cord Venous Blood HCO3 20 mmol/L (18.4-26.8); Cord Venous Blood PCO2 44 mmHg (30.4-57.2); Cord Venous Blood PO2 35 mmHg (14.1-43.3); Cord Venous Blood pH 7.28 (7.20-7.44)
[2021-11-04 17:07] LABS: Oxygen Sat Cord Arterial Blood < 60.0 % (<60)
[2021-11-04] MEDS: DOCUSATE SODIUM 100 MG CAP PO SCH (21:37)
[2021-11-05] MEDS: IBUPROFEN 600 MG TAB PO PRN ×2 (03:30→17:10)
--- NOTE | 2021-11-05 07:30 | Obstetrical Progress Note ---
Date of Service November 05, 2021 Assessment & Plan (1) state: day #1 the patient is doing well ambulating minimal bleeding her baby is in the level 2 nursery and she will stay today Subjective Ambulation: ambulating normally Voiding: no voiding problems Passing Gas:: Yes Diet Tolerance:: regular diet Lochia:: Small Results & Data ([facility]) Vital Signs (Past 12 Hours) Vital Signs Temp Pulse Resp BP Pulse Ox 11/05/21 03:27 97.7 F 69 18 110/70 98 11/04/21 22:48 98.2 F 65 16 128/75 97 11/04/21 19:30 98.1 F 71 18 127/83 97
[2021-11-05 07:51] LABS: Anion Gap 7 (3-11); BUN Creatinine Ratio 12.2 (10-20); Blood Urea Nitrogen 5 mg/dl (6-23); Calcium 8.5 mg/dl (8.5-10.1); Carbon Dioxide 25 mmol/L (21-32); Chloride 106 mmol/L (98-107); Creatinine Clr Calc Pharmacy 191.7 ml/min; Est GFR (African American) > 150.0 ml/min; Est GFR (Non-African American) 136.7 ml/min; Glucose 100 mg/dl (70-99(Fasting)); Potassium 2.6 mmol/L (3.5-5.1); Sodium 138 mmol/L (136-145)
[2021-11-05] MEDS ORDERED: HYDROCORTISONE 10 MG TAB PO SCH (09:00)
[2021-11-05] MEDS: DOCUSATE SODIUM 100 MG CAP PO SCH ×2 (10:22→20:12)
[2021-11-05] MEDS: PRENATAL VITAMIN 1 TAB PO SCH (10:22)
[2021-11-05] MEDS: SERTRALINE HCL 50 MG TABLET PO SCH (10:25)
[2021-11-05] MEDS: FLUDROCORTISONE ACETATE 0.1 MG TAB PO SCH (10:26)
[2021-11-05] MEDS: HYDROCORTISONE 10 MG TAB PO SCH ×2 (10:28→17:10)
[2021-11-05] MEDS: POTASSIUM CHLORIDE CRTAB 20 MEQ TABCR PO SCH ×3 (10:39→20:13)
--- NOTE | 2021-11-05 12:43 | Hospitalist Progress Note ---
Date of Service November 05, 2021 Assessment & Plan (1) Normal labor: Plan: - Per POLYMERIZATION HELPER (2) Adrenal insufficiency: Plan: - Patient taking Florinef 0.1 mg daily along with h 10 mg twice daily (prior to her third trimester, was on 10 mg in am/ 5 mg in pm but increased by her color control operator during her third trimester) -Agree with plan to provide Solu-Cortef 25 mg IV every 6H with an additional 100 mg IV at the onset of pushing. -Postdelivery, transitioned back to her Florinef 0.1 mg daily along with hydrocortisone with 50% increase and down taper over 3 days 5/6: 20 mg twice daily X 1 day /: 20 mg in the a.m./10 mg in the p.m. X 1 day 11/06: 10 mg twice daily X 1 day 11/07: then back to 10 mg in the morning and 5 mg in the evening chronically -this was D/W patient and she is aware. These recommendations are outlined in her D/C packet as unaware when patient will be discharged. -We will sign off on this patient from medical standpoint but please do not hesitate to reconsult or reach out should there be a problem (3) Leukocytosis: Plan: - Suspect steroid-induced plus . Patient without respiratory or urinary complaints. Would consider infectious work-up (blood cultures, chest x-ray, COVID test, urinalysis and culture) should patient develop a fever or any physical symptoms to suggest infectious process but likely steroid-induced (4) Hypokalemia: Plan: - supplement with FU BMP in am. - if remains low, additional supplementation recommendated (5) Anxiety: Plan: - continue Zoloft (6) Depression: Plan: - continue zoloft Plan: Plan of care will be discussed with Dr. Riggins. Will medically sign off Please do not hesitate to to reach out should there be a problem. Thank you for allowing me to participate in the care of this patient. Admission and Anticipated Discharge Date Admission Date: November 04, 2021 Subjective Patient seen on daily rounds today. Vocalizes no significant complaints or concerns. Delivered a healthy baby boy yesterday. Had an uneventful labor and delivery. Had a stage II tear. Reports minor discomfort but nothing significant. Baby currently on CPAP from meconium aspiration but doing well. Patient has been hemodynamically stable. Lab data reviewed today showing mild hypokalemia but otherwise sodium and glucose are within normal limits. Review of Systems Review of Systems: All systems reviewed and are unremarkable except as noted in HPI and below Denies fevers, chills, headache, nasal congestion, sore throat, cough, chest pain, shortness of breath, palpitations, orthopnea, PND, abdominal pain, nausea, vomiting, diarrhea, constipation, dysuria, hematuria, frequency, back pain, joint pain or swelling, easy bruising or bleeding, skin lesions or rashes. Physical Exam Physical Exam: General: Resting comfortably in his/her hospital bed/bedside chair. NAD. HEENT: Head is AT/NC. Buccal mucosa is moist and pink Neck: No JVD. Negative hepatojugular reflex Cardiac: RRR without M/G/R Lungs: CTA without W/R/R Abdomen: Normoactive X4. Soft and nontender in all quadrants. Extremities: No peripheral clubbing cyanosis or edema Neuro: A&O X4. Cranial nerves II through XII are grossly intact. No focal neuro deficits Skin: No obvious skin lesions or rashes Psych: Appropriate affect. Pleasant and cooperative Results & Data Results & Data ([facility]) Vital Signs (Past 12 Hours) Vital Signs Temp Pulse Resp BP Pulse Ox 11/05/21 08:00 36.5 C 74 20 133/80 11/05/21 03:27 36.5 C 69 18 110/70 98 Laboratory Results 11/04/21 05:18 11/05/21 07:09 PG Care Time/CCT Total # of Minutes Spent Total Time Spent with Patient: Total time spent is greater than 50% in coordination of care (as documented) at patient's floor/unit and/or counseling patient: Coding Level of Care Code 48662 Inpt Consult Level 4 Diagnoses Normal labor O80; Z37.9 Adrenal insufficiency E27.40 Leukocytosis D72.829 Hypokalemia E87.6 Anxiety F41.9 Depression F32.89 Depression Type: other depression (1) Depression Depression Type: other depression Qualified Code(s): F32.89 - Other specified depressive episodes
[2021-11-05] MEDS ORDERED: bisacodyL 5 MG TABEC PO SCH (20:00)
[2021-11-06 06:36] LABS: Hemoglobin 10.9 g/dL (12.0-16.0)
[2021-11-06 06:55] LABS: Anion Gap 5 (3-11); BUN Creatinine Ratio 15.4 (10-20); Blood Urea Nitrogen 6 mg/dl (6-23); Calcium 8.2 mg/dl (8.5-10.1); Carbon Dioxide 27 mmol/L (21-32); Chloride 110 mmol/L (98-107); Creatinine Clr Calc Pharmacy 201.5 ml/min; Est GFR (African American) > 150.0 ml/min; Glucose 73 mg/dl (70-99(Fasting)); Sodium 142 mmol/L (136-145)
[2021-11-06] MEDS ORDERED: POTASSIUM CHLORIDE 10 MEQ / 100ML WTR IV STA (07:21)
--- NOTE | 2021-11-06 07:59 | Obstetrical Progress Note ---
Date of Service November 06, 2021 Assessment & Plan (1) state: Recovered well from , in L2 nursery this AM. Would like to use nesting status after discharge. 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 Plan for further K replacement today per hospitalist recommendations as communicated with Dr. Riggins earlier this AM. Continued care of this chronic condition with her established endocrine specialist after d/c. Subjective Ambulation: ambulating normally (walking halls, visiting nursery this morning) Voiding: no voiding problems Passing Gas:: Yes (+BM) Diet Tolerance:: regular diet Lochia:: Small Feeding Type:: breast feeding Review of Systems Denies VIEIRA, RUQ pain, vision change. Edema trace and equal bilateral LE. No N/V, no CP/SOB, eating/voiding/BM/flatus all normally. "Surprised how good I feel." Physical Exam Constitutional WD/WN, vitals as above Eyes PERRL, conjunctivae normal, anicteric sclerae Neck normal visual inspection Respiratory normal respiratory effort and able to speak in complete sentences; no respiratory distress and no labored breathing Cardiovascular Rate/Rhythm: regular rate and regular rhythm Extremities: + edema Chest (Breasts) Chest: normal inspection of chest Gastrointestinal (Abdomen) Inspection/Auscultation: abdomen normal to inspection Psychiatric A+Ox3, euthymic affect Results & Data ([facility]) Vital Signs (Past 12 Hours) Vital Signs Temp Pulse Resp BP Pulse Ox 11/06/21 07:30 97.9 F 16 124/87 11/05/21 23:35 97.7 F 67 16 146/85 H 98 11/05/21 20:05 98.1 F 75 16 130/80 98
[2021-11-06] MEDS ORDERED: MAGNESIUM SULFATE / D5W 1 GM/100 ML BAG IV ONE (08:00)
[2021-11-06] MEDS: DOCUSATE SODIUM 100 MG CAP PO SCH (08:21)
[2021-11-06] MEDS: PRENATAL VITAMIN 1 TAB PO SCH (08:22)
[2021-11-06] MEDS: POTASSIUM CHLORIDE / WTR 10 MEQ/100 ML PLCT IV SCH ×3 (08:31→10:24)
[2021-11-06] MEDS ORDERED: HYDROCORTISONE 10 MG TAB PO SCH ×4 (09:00→21:00)
[2021-11-06] MEDS: FLUDROCORTISONE ACETATE 0.1 MG TAB PO SCH (09:25)
[2021-11-06] MEDS: SERTRALINE HCL 50 MG TABLET PO SCH (09:25)
[2021-11-06] MEDS: IBUPROFEN 600 MG TAB PO PRN (16:29)
== END 2021-11-06 17:42 | disposition home or self-care (01) | DRG 806 ==
LOC: 4S1 04:17 → 4E2 18:48